=== PATIENT | male | born 2005 | race Caucasian/White ===

== ENCOUNTER 2023-12-26 12:44 | Emergency (ER) | payer OTHER, SELFPAY ==
[2023-12-26 12:46] VITALS: BP 129/70; PULSE 124; RESP 18; TEMP 36.8; O2SAT 100
--- NOTE | 2023-12-26 13:05 | EX.ED.DYSGE1 ---
HPI History of Present Illness Chief Complaint: General Illness Informant: patient Onset/Context/Timing Onset: Yesterday Context: Sudden Onset Timing: Continuous Quality: Aching, burning Location: Generalized Worsened by: Nothing Relieved by: Nothing Narrative Narrative: Patient presents with I do not feel good since yesterday. Patient has been having some nausea and vomiting. Patient denies any diarrhea. Patient admits to a cough with some yellow sputum. Patient admits to subjective fevers and chills. Patient states he feels dizzy. Patient admits to a headache and tinnitus. Patient states that his headache feels like it is aching and burning. Patient states nothing makes his symptoms better and nothing makes them worse. [facility] Medical History Depression Home Medications fluoxetine 10 mg tablet 60 mg PO 12/26/23 [History Last Taken 12/26/23] ondansetron 4 mg disintegrating tablet 4 mg PO Q8H PRN PRN Nausea #10 tabs 12/26/23 [Rx Last Taken Unknown] Allergy/AdvReac Type Severity Reaction Status Date / Time No Known Allergies Allergy Verified 12/26/23 12:48 Surgical History no surgical history no surgical history Social History Smoking Status: Never smoker ROS ROS ED Constitutional Constitutional ED: Reports chills and fever(s) Eyes Eyes: Denies blurry vision or change in vision ENT ENT ED: Reports sore throat; Denies rhinorrhea Cardiovascular Cardiovascular: Denies chest pain or palpitations Respiratory/Chest Respiratory/Chest: Reports cough and sputum; Denies dyspnea Gastrointestinal Gastrointestinal: Reports nausea and vomiting Genitourinary Genitourinary ED: Denies dysuria or hematuria Musculoskeletal Musculoskeletal: Reports back pain, myalgias and neck pain Integumentary Denies abscess or rash Neurologic Neurologic: Reports headache(s); Denies weakness Allergic/Immunologic Allergic/Immunologic ED: Denies mouth swelling or urticaria EXAM Physical Exam Const Vital Signs: 12/26/23 12:46 12/26/23 14:06 12/26/23 14:48 Temperature 98.2 F Temperature Source Temporal Pulse Rate 124 H 120 H Respiratory Rate 18 35 H Respiratory Effort Normal Non-Labored Blood Pressure 129/70 H 136/69 H Blood Pressure Mean 89 91 Pulse Ox 100 100 Oxygen Delivery Method Room Air Room Air 12/26/23 16:20 Temperature Temperature Source Pulse Rate 111 H Respiratory Rate 18 Respiratory Effort Blood Pressure 107/52 L Blood Pressure Mean 70 Pulse Ox 95 Oxygen Delivery Method Room Air Positive well nourished and well developed General Appearance ED: well developed and NAD HEENT Reports moist mucous membranes Neck supple and no JVD Resp normal respiratory effort and clear to auscultation bilaterally Cardio regular rhythm Rate: tachycardic GI non-distended Palpation: soft and tender epigastric, LLQ, RLQ, LUQ, RUQ, periumbilical and suprapubic; Negative for guarding or rebound tenderness present Neuro oriented x3, CN's II-XII intact bilaterally and no sensory deficits noted Sensorium / Orientation: alert Motor Exam: strength 5/5 throughout Psych mental status grossly normal MDM MDM MDM Narrative Medical decision making narrative: Differential diagnosis includes dehydration, viral illness, electrolyte abnormality, anxiety, sepsis, cardiac dysrhythmia, and cardiac ischemia. EKG will be obtained to assess for cardiac dysrhythmia and cardiac ischemia. CBC will be obtained to assess for leukocytosis and anemia. Comprehensive metabolic profile will be obtained to assess for hepatic function, renal function, and electrolyte abnormality. Lipase will be obtained to assess for pancreatitis. Lactate will be obtained to assess for sepsis. Urinalysis will be obtained to assess for urinary tract infection and hematuria. High-sensitivity troponin will be obtained to assess for cardiac ischemia. COVID-19, influenza, and RSV PCR will be obtained to assess for viral illness. Lab Data Attestation: I reviewed the patient's lab results. Lab results narrative: CBC was reviewed. There is a slight leukocytosis of 12.6. The remainder is within normal limits. Comprehensive metabolic profile was reviewed and was within normal limits. Lipase was reviewed and was normal at 32. High-sensitivity troponin was reviewed and was normal at 4. Serum lactate was reviewed and was slightly elevated at 2.2. Urinalysis was reviewed. There is no evidence of urinary tract infection or hematuria. Labs: Laboratory Results - last 24 hr 12/26/23 12/26/23 14:00 14:40 WBC 12.6 H RBC 5.00 Hgb 14.8 Hct 42.1 MCV 84.2 MCH 29.6 MCHC 35.2 RDW Std Deviation 34.2 L RDW Coeff of [place] 11.2 L Plt Count 211 MPV 9.4 Immature Gran % (Auto) 0.500 Neut % (Auto) 85.3 H Lymph % (Auto) 4.8 L [place] % (Auto) 9.3 Eos % (Auto) 0.0 Baso % (Auto) 0.1 Absolute Neuts (auto) 10.7 H Absolute Lymphs (auto) 0.60 L Nucleated RBC % 0 Sodium 137 Potassium 3.6 Chloride 102 Carbon Dioxide 27.0 Anion Gap 8 BUN 14 Creatinine 1.05 Estim Creat Clear Calc 118.80 Est GFR (MDRD) Af Amer 116 Est GFR (MDRD) Non-Af 96 BUN/Creatinine Ratio 13.3 Glucose 132 H Lactic Acid 2.2 H* Calcium 9.8 Total Bilirubin 0.90 AST 15 ALT 36 Alkaline Phosphatase 70 Troponin I High Sens 4 Total Protein 7.2 Albumin 4.1 Globulin 3.1 Albumin/Globulin Ratio 1.3 Lipase 32 Urine Color Yellow Urine Clarity Clear Urine pH 8.0 Ur Specific [place] 1.010 Urine Protein Negative Urine Glucose (UA) Normal Urine Ketones Negative Urine Occult Blood Negative Urine Nitrite Negative Urine Bilirubin Negative Urine Urobilinogen Normal Ur Leukocyte Esterase Negative Urine RBC 0 SEEN Urine WBC 0 SEEN Ur Squamous Epith Cells 0 SEEN Urine Bacteria 0 SEEN Urine Mucus 0 SEEN EKG Initial EKG: Attestation: I personally reviewed and interpreted this EKG as follows: Interpretation: No Acute Injury Pattern and Sinus Tachycardia (111) Comments: EKG was obtained. On my independent interpretation, it showed a sinus tachycardia with a rate of 111. FL interval, QRS interval, and QTc intervals were all normal. Mallory was normal. There are no acute ST or T wave changes. Treatment and Re-Evaluation :: Patient was given IV fluids and Zofran. Patient was also given a dose of Toradol. Patient was feeling better on reevaluation. Patient and family were advised of his findings. Patient was instructed to drink small amounts of liquids more frequently. Patient was given a prescription for Zofran. Patient was instructed to follow-up with his primary care physician in 3 to 5 days. Patient and family understood and were agreeable with the plan. All questions were answered. Discharge Plan Triage Chief Complaint: General Illness ED Provider: [place] Roberson Dx/Rx/DC Orders Clinical Impression: Viral illness, Dehydration Instructions: ED Dehydration (Adult), ED Viral Syndrome (Adult) Prescriptions: New ondansetron [ondansetron] 4 mg tablet,disintegrating 4 mg PO Q8H PRN PRN (Reason: Nausea) Qty: 10 0RF No Action fluoxetine 10 mg tablet 60 mg PO Primary Care Provider: [facility] Doctor,Out of Referrals: [facility] Doctor,Out of [Primary Care Provider] - 3-5 Days Disposition Disposition: Home, Self Care
[2023-12-26] MEDS: 0.9% Normal Saline (1000mL) 1,000 ML 1000 ML IV ×2 (13:55→15:27)
[2023-12-26] MEDS: Ondansetron 4 MG/2 ML Vial IV (13:55)
[2023-12-26 13:56] VITALS: BMI 20.5
[2023-12-26 14:13] LABS: Absolute Neutrophil Count 10.7 X10^3/uL (2.0-7.7); Basophil# 0.01 X10^3/uL; Basophil% 0.1 % (0-1); Hematocrit 42.1 % (40-54); Hemoglobin 14.8 g/dL (13.0-16.5); Lymphocyte % 4.8 % (19-41); Mean Corp Hgb Conc 35.2 g/dL (32-36); Mean Corpuscular Hgb 29.6 pg (27.0-32.0); Mean Corpuscular Volume 84.2 fL (80-94); Mean Platelet Vol. 9.4 fl (6.2-12.0); Monocyte# 1.17 X10^3/uL; Monocyte% 9.3 % (0-10); NRBC Flagged by Analyzer 0 % (0-5); Neutrophil # 10.71 X10^3/uL (2.7-7.7); Neutrophil % 85.3 % (47-70); POSITIVE DIFFERENTIAL YES; Platelet Count 211 K/mm3 (150-450); RBC Distribution Width CV 11.2 % (11.6-14.6); RBC Distribution Width SD 34.2 fl (35.1-43.9); White Blood Count 12.6 K/mm3 (4.4-11.0)
--- NOTE | 2023-12-26 14:28 | EKG12_ITS ---
Test Reason : SOB Blood Pressure : / mmHG Vent. Rate : 111 BPM Atrial Rate : 111 BPM P-R Int : 182 ms QRS Dur : 086 ms QT Int : 318 ms P-R-T Axes : 034 089 024 degrees QTc Int : 432 ms Sinus tachycardia OTHERWISE NORMAL Confirmed by Jamal Wynne ([id number]), department editor FLORINA COLEMAN ([id number]) on 12/27/2023 10:00:52 AM Referred By: ES Confirmed By:Jamal Wynne
[2023-12-26 14:36] LABS: ALB/GLOB Ratio 1.3 RATIO (0.9-2.4); AST(SGOT) 15 U/L (15-37); Alanine Aminotransfer ALT/SGPT 36 U/L (16-61); Albumin, Serum 4.1 g/dL (3.2-5.0); Alkaline Phosphatase 70 U/L (45-117); Anion Gap 8 (5-15); BUN 14 mg/dL (7-18); BUN/Creat Ratio 13.3 RATIO (10-20); Calcium,Total 9.8 mg/dL (8.5-10.1); Chloride 102 mmol/L (98-107); Creatinine, Serum 1.05 mg/dL (0.70-1.30); EST Glomerular Filtration Rate 96 mL/min (>60); Est Glom Filt Rate - Afr Amer 116 mL/min (>60); Globulin 3.1 g/dL (2.2-4.2); Glucose 132 mg/dL (74-106); Lipase 32 U/L (13-75); Potassium 3.6 mmol/L (3.5-5.1); Protein, Total 7.2 g/dL (6.4-8.2); Sodium Level 137 mmol/L (136-145)
--- NOTE | 2023-12-26 14:36 | NURSING ---
NO OLD EKGS
[2023-12-26 14:48] VITALS: BP 136/69; PULSE 120; RESP 35; O2SAT 100
[2023-12-26 14:48] LABS: Bacteria 0 SEEN /hpf (None Seen); Mucous, Urine 0 SEEN /hpf (<or=2+); Red Blood Cells-Urine 0 SEEN /hpf (0-5); Squamous Epithelial Cells - UA 0 SEEN /hpf (0-5); White Blood Cells 0 SEEN /hpf (0-5)
[2023-12-26] MEDS: Ketorolac 30 MG/ML Syringe IV (14:56)
[2023-12-26 15:01] LABS: Color, Urine Yellow (Yellow); Glucose, Dipstick Normal (Normal); Ketone-Dipstick Negative (Negative); Leukocyte Esterase-Dipstick Negative /ul (Negative); Nitrite-Dipstick Negative (Negative); Occult Blood-Urine Negative /ul (Negative); Protein-Dipstick Negative (Negative); Urine Bilirubin Dipstick Negative (Negative); Urine Clarity Clear (Clear); Urine Urobilinogen Normal (Normal)
--- NOTE | 2023-12-26 15:01 | ED.RN ---
PT LACTIC ACID 2.2 DR SANCHEZ
[2023-12-26 15:02] LABS: Lactic Acid 2.2 mmol/L (0.4-1.9); Troponin-I HS 4 pg/mL (3.0-78.0)
[2023-12-26 16:20] VITALS: BP 107/52; PULSE 111; RESP 18; O2SAT 95
[2023-12-26 16:49] VITALS: BP 118/57; PULSE 114; RESP 21; TEMP 36.6; O2SAT 98
[2023-12-26 18:07] LABS: Reflex Lactate? Y
== END 2023-12-26 16:55 | disposition home or self-care (01) ==
PROVIDERS: Emergency Provider Emergency Medicine; Visit Provider Emergency Medicine
DX: B34.9 Viral infection, unspecified (principal); E86.0 Dehydration; R11.2 Nausea with vomiting, unspecified; Z11.52 Encounter for screening for COVID-19; R51.9 Headache, unspecified; R05.9 Cough, unspecified; H93.19 Tinnitus, unspecified ear; R50.9 Fever, unspecified; F32.A Depression, unspecified; Z79.899 Other long term (current) drug therapy
CPT/HCPCS: 80053; 81001; 83605; 83690; 84484; 85025; 87631; 93005; 96361; 96374; 96375; 99283; J7030; A4216; J2405